=== PATIENT | female | born 2000 ===

== ENCOUNTER 2023-06-20 18:58 | Emergency (ER) | payer OTHER ==
[2023-06-20] MEDS ORDERED: Acetaminophen 500 MG TAB ONE (20:19)
[2023-06-20] MEDS ORDERED: traMADol HCl 50 MG TAB ONE (20:19)
[2023-06-20] MEDS ORDERED: Dexamethasone 10 MG/ML VIAL ONE (20:51)
[2023-06-20] MEDS ORDERED: Amoxicillin/Potassium Clav 875 MG TAB ONE (20:51)
== END 2023-06-20 20:57 | disposition home or self-care (01) ==
LOC: ERS 18:58
DX: H60.93 Unspecified otitis externa, bilateral (principal)
CPT/HCPCS: 99282; J1100